=== PATIENT | male | born 1985 | race Caucasian/White ===

== ENCOUNTER 2024-05-12 14:09 | Emergency (ER) | payer OTHER, SELFPAY ==
[2024-05-12 14:14] VITALS: BP 155/95; PULSE 91; RESP 20; TEMP 36.9; O2SAT 100
--- NOTE | 2024-05-12 14:43 | ED.GENADULT ---
HPI - General Adult General Chief complaint: Neck Pain/Injury Stated complaint: throat w/ constriction History of Present Illness HPI narrative: Patient presents with a feeling as if something is stuck in his throat. No trouble swallowing no drooling no pain with swallowing. No respiratory problems. Related Data Home Medications Medication Instructions Recorded Confirmed losartan 50 mg tablet 50 mg PO DAILY 05/12/24 05/12/24 Allergies Allergy/AdvReac Type Severity Reaction Status Date / Time No Known Allergies Allergy Unverified 11/27/16 22:37 Review of Systems Review of Systems: CONSTITUTIONAL: Denies fever, chills, or sweats. EYES: Denies visual changes, redness, or discharge. ENT: Denies rhinorrhea, congestion, sore throat, or otalgia. CARDIOVASCULAR: Denies chest pain, palpitations, or edema. RESPIRATORY: Denies cough or dyspnea. GASTROINTESTINAL: Denies abdominal pain, nausea, vomiting, or diarrhea. GENITOURINARY: Denies dysuria or hematuria. SKIN: Denies rash or itching. MUSCULOSKELETAL: Denies back pain, joint pain, or myalgia. NEUROLOGIC: Denies headache, numbness, or weakness. PSYCHIATRIC: Denies anxiety or depression. PMFSH Comments At time of signature, agree with nursing past medical, surgical, social and family history. There is no relevant family history pertinent to the presenting complaint Exam Narrative: GENERAL: Well-appearing, well-nourished, and in no acute distress. HEAD: Normocephalic, atraumatic. EYES: PERRLA and EOMI. ENT: Nares clear, no rhinorrhea or epistaxis. Mucous membranes moist. NECK: Supple. CHEST: Clear to auscultation. No respiratory distress. HEART: Regular rate and rhythm. No murmur heard. Normal peripheral pulses. ABDOMEN: Soft, nontender, nondistended, normal active bowel sounds. EXTREMITIES: Normal range of motion. No edema. SKIN: Warm, dry, no rash. NEURO: No focal deficits. Alert and oriented x3. [place] Coma Scale Eye Opening: Spontaneous 4 [place] Coma Scale Motor: Obeys Commands 6 [place] Coma Scale Verbal: Oriented 5 [place] Coma Scale Total 15 Course Course Level of Care: Express Care Visit Vital Signs Vital signs: Vital Signs Temperature 36.9 C 05/12/24 14:14 Pulse Rate 91 05/12/24 14:14 Respiratory Rate 20 05/12/24 14:14 Blood Pressure 155/95 H 05/12/24 14:14 Pulse Oximetry 100 05/12/24 14:14 Oxygen Delivery Room Air 05/12/24 14:14 Temperature 36.9 C 05/12/24 14:14 Pulse Rate 91 05/12/24 14:14 Respiratory Rate 20 05/12/24 14:14 Blood Pressure 155/95 H 05/12/24 14:14 Pulse Oximetry 100 05/12/24 14:14 Oxygen Delivery Room Air 05/12/24 14:14 Please TATI schedule a followup visit with your personal physician for further evaluation and treatment. Including recheck and discussion of your blood pressure. If your symptoms persist, change or worsen significantly before you can contact your personal physician then please, without delay, go to the emergency department for further evaluation Transfer Transfer rationale: Higher level of care due to feeling of throat constricting Accepting physician: Aditi page Transfer comments: Patient prefers to go by private vehicle Medical Decision Making Vital Signs Vital Signs: Vital Signs Temperature 36.9 C 05/12/24 14:14 Pulse Rate 91 05/12/24 14:14 Respiratory Rate 05/12/24 14:14 Blood Pressure 155/95 H 05/12/24 14:14 Pulse Oximetry 100 05/12/24 14:14 Oxygen Delivery Room Air 05/12/24 14:14 Temperature 36.9 C 05/12/24 14:14 Pulse Rate 91 05/12/24 14:14 Respiratory Rate 20 05/12/24 14:14 Blood Pressure 155/95 H 05/12/24 14:14 Pulse Oximetry 100 05/12/24 14:14 Oxygen Delivery Room Air 05/12/24 14:14 Please TATI schedule a followup visit with your personal physician for further evaluation and treatment. Including recheck and discussion of your blood pressure. If your symptoms persist, change or worsen sig
== END 2024-05-12 14:41 | disposition short-term general hospital (02) ==
PROVIDERS: Emergency Provider Nurse Practitioner Family; PCP Family Medicine
DX: J39.2 Other diseases of pharynx (principal)
CPT/HCPCS: 99212; G0463